=== PATIENT | male | born 1980 | race Caucasian/White ===

== ENCOUNTER 2016-10-27 12:17 | Emergency (ER) | payer OTHER ==
[~2016-10-27] VITALS: Ht 177.8 cm; Wt 72.6 kg
--- NOTE | 2016-10-27 12:45 | PHYS DOC ---
General Chief Complaint: ABDOMINAL PAIN Stated Complaint: ABDOMINAL PAIN Time Seen by MD: 12:20 Source: patient Exam Limitations: no limitations Problems: History of Present Illness Initial Comments Pt is 36/M to ED c/o abdominal pain. Pt states he's had LUQ abdominal pain bloating worse after eating with radiation to his back for one month. 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 Pt saw GI, MRCP/US GB normal and EGD showed reflux esophagitis. Pt states pain symptoms persist and he's come for evaluation. No n/v/d, no bowel/bladder sx. Pt admits to pancreatitis years ago but has had no n/v. No CT evaluation to date. Pain moderate, crampy/achy worse with certain movements relieved somewhat by rest. Timing/Duration: constant (1 month) Severity: moderate Modifying Factors: worse with eating, worse with movement, improves with rest Associated Symptoms: other Allergies: Coded Allergies: No Known Drug Allergies (Unverified , 10/27/16) Past Medical History Medical History: other (pancreatitis) Surgical History: noncontributory Social History Smoker: non-smoker Alcohol: occasionally Drugs: none Review of Systems Constitutional: denies chills, denies diaphoresis, denies fever, denies malaise Respiratory: denies cough, denies shortness of breath Cardiovascular: denies chest pain, denies palpitations Gastrointestinal: see HPI Genitourinary: denies dysuria, denies frequency, denies hematuria Musculoskeletal: see HPI, denies joint swelling, denies neck pain Psychiatric/Neurological: denies headache, denies numbness, denies paresthesia Physical Exam General Appearance: WD/WN, no apparent distress Eyes: bilateral eye normal inspection, bilateral eye PERRL, bilateral eye EOMI Ear, Nose, Throat: hearing grossly normal, normal ENT inspection, normal pharynx Neck: non-tender, supple Respiratory: normal breath sounds, no respiratory distress Cardiovascular: normal peripheral pulses, regular rate, rhythm Gastrointestinal: normal bowel sounds, soft (ND, mild LUQ TTP no r/g/mass) Rectal: deferred Back: no CVA tenderness, no vertebral tenderness Extremities: non-tender, normal inspection Neurologic/Psychiatric: ct manager II-XII nml as tested, no motor/sensory deficits, alert, normal mood/affect, oriented x 3 Skin: normal color, warm/dry Orders, Labs, Meds PATIENT: JUAN LARRY ACCOUNT: [id number] : 1980 LOCATION: ER AGE: 36 SEX: M EXAM STATUS: REG ER ORD. PHYSICIAN: NACHO RANKIN DO REASON: LUQ rad to back pain/bloating r/o pancreatitis vs other PROCEDURE: CT ABD PELV W/ IV CONTRST ONLY ADDENDUM Addendum. Minimal small sclerotic density measuring 1.6 cm identified in the left proximal femur could be an enchondroma or benign lesion. Technique should state: CT of the abdomen and pelvis with IV contrast. DICTATED AND SIGNED BY: AYUSH PINK MD DATE: 10/27/16 3970 CC: ELIECER WRIGHT MD; NACHO RANKIN DO ~ Examination: CT of the umbilicus with IV contrast History: History of abdominal pain for one month left upper quadrant pain Comparison: None available PQRS Compliance Statement: One or more of the following individualized dose reduction techniques were utilized for this examination: 1. Automated exposure control 2. Adjustment of the mA and/or kV according to patient size 3. Use of iterative reconstruction technique Technique: Axial CT images of the abdomen is performed with IV contrast. Coronal and sagittal reformats were performed Findings: The visualized bibasal lungs grossly appears unremarkable. There is minimal prominent appearing intrahepatic bile ducts. The visualized liver demonstrates a small subcentimeter hypodensity in the left lobe of the liver measuring 4 mm is too small to characterize otherwise the liver grossly appears unremarkable. The visualized spleen, adrenals grossly appears unremarkable. The bilateral kidneys enhance symmetrically. There is a cystic structure identified in the left kidney measuring 1.1 cm probably a cyst. The visualized pancreas grossly appears unremarkable. The stomach is mildly distended. The small bowel is nondilated. Feces and gas noted throughout the colon. The visualized partially visualized appendix grossly appears unremarkable The urinary bladder is mildly distended. The caliber of the aorta grossly appears unremarkable No evidence of lytic bony destructive lesion identified. Impression: 1. Minimal prominent appearing intrahepatic bile ducts. Correlate with liver function tests. Ultrasound right upper quadrant can be considered . Otherwise no acute abdominal findings. DICTATED AND SIGNED BY: AYUSH PINK MD DATE: 10/27/16 2931 CC: ELIECER WRIGHT MD; NACHO RANKIN DO ~ Lipase wnl Departure Time of Disposition: 14:05 Disposition: 01 HOME, SELF-CARE Diagnosis: abdominal pain nonspecific, GERD Condition: GOOD Patient Instructions: Abdominal Pain, Diet for Gastroesophageal Reflux Disease , Adult, [id number] Additional Instructions: No pancreatitis evident from today's exam. Continue current medications. Follow up with GI as directed. Follow up on Post next week for recheck. Return to ED with new or changing symptoms. NACHO RANKIN DO October 27, 2016 12:45
[2016-10-27 12:50] VITALS: BP 117/64
[2016-10-27] MEDS: IOHEXOL 300 MG/ML 75 ML VIAL. IV ONE (13:26)
--- NOTE | 2016-10-27 13:51 | RAD ---
Examination: CT of the umbilicus with IV contrast History: History of abdominal pain for one month left upper quadrant pain Comparison: None available PQRS Compliance Statement: One or more of the following individualized dose reduction techniques were utilized for this examination: 1. Automated exposure control 2. Adjustment of the mA and/or kV according to patient size 3. Use of iterative reconstruction technique Technique: Axial CT images of the abdomen is performed with IV contrast. Coronal and sagittal reformats were performed Findings: The visualized bibasal lungs grossly appears unremarkable. There is minimal prominent appearing intrahepatic bile ducts. The visualized liver demonstrates a small subcentimeter hypodensity in the left lobe of the liver measuring 4 mm is too small to characterize otherwise the liver grossly appears unremarkable. The visualized spleen, adrenals grossly appears unremarkable. The bilateral kidneys enhance symmetrically. There is a cystic structure identified in the left kidney measuring 1.1 cm probably a cyst. The visualized pancreas grossly appears unremarkable. The stomach is mildly distended. The small bowel is nondilated. Feces and gas noted throughout the colon. The visualized partially visualized appendix grossly appears unremarkable The urinary bladder is mildly distended. The caliber of the aorta grossly appears unremarkable No evidence of lytic bony destructive lesion identified. Impression: 1. Minimal prominent appearing intrahepatic bile ducts. Correlate with liver function tests. Ultrasound right upper quadrant can be considered . Otherwise no acute abdominal findings.
== END 2016-10-27 14:21 | disposition home or self-care (01) ==
LOC: ER 12:17
DX: K21.9 Gastro-esophageal reflux disease without esophagitis (principal); R10.12 Left upper quadrant pain
CPT/HCPCS: 36415; 74177; 83690; 99285; Q9967

== ENCOUNTER → 2016-12-24 | Outpatient (CLI) | payer OTHER ==
--- NOTE | 2016-12-24 10:38 | RAD ---
Gastric emptying scintigraphy 12/24/2016 and 0921 hours Indication: Gastroparesis Comparison: Gastric emptying scintigraphy 10/28/2016 Technique: 2 mCi technetium 99m sulfur colloid was mixed with solid test meal and administered. Sequential solid phase gastric emptying study scintigraphy examination was performed. Anterior abdominal images were obtained after the ingestion of standardized radiolabeled solid meal. A time activity curve was plotted. Findings: There is mild retention of radiotracer in stomach. The T half measures 71 minutes, improved from the prior examination where it measured 364 minutes. Impression: Interval improvement in gastric emptying with current T half measuring 71 minutes.
== END | disposition home or self-care (01) ==
LOC: NM 07:38
PROVIDERS: ATTEND Internal Medicine Gastroenterology
DX: K31.84 Gastroparesis (principal)
CPT/HCPCS: 78264; A9541